=== PATIENT | male | born 1955 | race Caucasian/White ===

== ENCOUNTER 2021-02-22 10:02 | Day surgery (SDC) | payer MEDICARE, BC ==
[2021-02-21 16:30] LABS: ALBUMIN 3.9 G/DL (3.4-5.0); ANION GAP 11 (8-16); BLOOD UREA NITROGEN 16 MG/DL (7-18); BUN/CREATININE RATIO 20.8 (5.4-32.0); CHLORIDE 107 MMOL/L (99-107); CREATININE 0.77 MG/DL (0.60-1.10); GLUCOSE 95 MG/DL (70-104); POTASSIUM 3.8 MMOL/L (3.5-5.1); SODIUM 146 MMOL/L (135-145); eGFR > 90 ML/MIN
[2021-02-21 16:31] LABS: PARTIAL THROMBOPLASTIN TIME 27 SECONDS (22-32)
[2021-02-21 16:33] LABS: BASOPHILS % (AUTO) 0.5 % (0-1); EOSINOPHILS # (AUTO) 0.2 X10'3 (0-0.9); HEMATOCRIT 45.6 % (42.0-52.0); HEMOGLOBIN 15.6 g/dl (14.0-17.9); LYMPHOCYTES # (AUTO) 1.5 X10'3 (1.1-4.8); LYMPHOCYTES % (AUTO) 25.3 % (21-51); MEAN CORPUSCULAR HEMOGLOBIN 32.5 PG (27.0-31.0); MEAN CORPUSCULAR HGB CONC 34.1 g/dL (33.0-36.5); MEAN CORPUSCULAR VOLUME 95.3 FL (78-98); MEAN PLATELET VOLUME 10.1 FL (7.4-10.4); MONOCYTES # (AUTO) 0.6 X10'3 (0-0.9); MONOCYTES % (AUTO) 9.4 % (2-12); NEUTROPHILS # (AUTO) 3.7 X10'3 (1.8-7.7); NEUTROPHILS % (AUTO) 60.8 % (42-75); PLATELET COUNT 192 X10'3 (140-440); RED BLOOD COUNT 4.79 X10'6 (4.70-6.10); RED CELL DISTRIBUTION WIDTH 13.2 % (11.5-14.5); WHITE BLOOD COUNT 6.1 X10'3 (4.5-11.0)
[2021-02-22] VITALS (12 sets, daily range): BP systolic 123–176; BP diastolic 67–105
[~2021-02-22] VITALS: Ht 182.9 cm; Wt 69.1 kg
[2021-02-22] MEDS ORDERED: diphenhydrAMINE 25mg capsule PO PRN (10:25)
[2021-02-22] MEDS ORDERED: acetylcysteine 200 MG/ml 4ml vial PO PRN (10:25)
[2021-02-22] MEDS ORDERED: LORazepam 0.5 MG tablet PO PRN (10:25)
[2021-02-22] MEDS ORDERED: normal saline 1,000 ML IV SCH (10:25)
[2021-02-22] MEDS ORDERED: LIDOcaine/PRILOcaine 5gm cream TP ONE (10:25)
[2021-02-22] MEDS ORDERED: AMLO5TAB16 PO (10:29)
[2021-02-22] MEDS ORDERED: ATOR20TA66 PO (10:29)
[2021-02-22] MEDS ORDERED: BRIM5DRO16 (10:29)
[2021-02-22] MEDS ORDERED: TIMO5DRO4 (10:29)
[2021-02-22] MEDS ORDERED: LATA2.5D14 (10:29)
[2021-02-22] MEDS ORDERED: METO-395 PO (10:29)
[2021-02-22] MEDS ORDERED: [UNRECOGNIZED DRUG - CODE] PO (10:29)
[2021-02-22] MEDS ORDERED: OMEP40CA21 PO (10:29)
[2021-02-22] MEDS ORDERED: verapamil 2.5 mg/ml inj IV ONE (12:28)
[2021-02-22] MEDS ORDERED: midazolam 1 mg/ML 2ml injection ONE ×2 (12:28→14:32)
[2021-02-22] MEDS ORDERED: heparin 1,000unit/ml 10ml vial 10 ML ONE (12:29)
[2021-02-22] MEDS ORDERED: iohexol 350MG/ML 100ml bottle IV ONE ×2 (12:29→14:28)
[2021-02-22] MEDS ORDERED: iohexol 350 MG/ML 50ML vial IV ONE ×2 (12:29→15:12)
[2021-02-22] MEDS ORDERED: LIDOcaine 1% (10mg/ml)w/preservative injection 20ml MDV ONE (12:29)
[2021-02-22] MEDS ORDERED: fentaNYL/PF 50MCG/1 ML 2ML syringe ONE (12:29)
[2021-02-22] MEDS ORDERED: nitroGLYCERIN-Tridil 50MG/D5W 250 ML IV ONE (13:24)
[2021-02-22 14:10] LABS: ISTAT HGB ART 14.3 g/dl (14.0-18.0); ISTAT Hct ART 42 %PCV (42-52); ISTAT O2 SATURATION ARTERIAL 88 % (95-98); ISTAT SOURCE ART
[2021-02-22] MEDS ORDERED: heparin 25,000 UNIT/250ml bag 250 ML IV ONE (14:26)
[2021-02-22 14:29] LABS: ISTAT Hct MIX 41 %PCV (42-52); ISTAT O2 SATURATION MIX VENOUS 65 % (60-80); ISTAT SOURCE VEN
[2021-02-22] MEDS ORDERED: diphenhydrAMINE 50 mg/ml inj ONE (15:00)
[2021-02-22] MEDS ORDERED: meperidine/PF 50mg/ml syringe IV PRN (15:10)
[2021-02-22] MEDS ORDERED: clopidogrel 300mg tablet ONE (15:21)
== END 2021-02-22 20:30 | disposition home or self-care (01) ==
LOC: SSTAY O 10:02
PROVIDERS: ATTEND Internal Medicine Cardiovascular Disease
DX: R94.39 Abnormal result of other cardiovascular function study (principal); I25.10 Atherosclerotic heart disease of native coronary artery without angina pectoris; I10 Essential (primary) hypertension; E78.5 Hyperlipidemia, unspecified; J44.9 Chronic obstructive pulmonary disease, unspecified; H40.9 Unspecified glaucoma; F17.211 Nicotine dependence, cigarettes, in remission; Z79.899 Other long term (current) drug therapy; Z79.01 Long term (current) use of anticoagulants; Z83.3 Family history of diabetes mellitus
CPT/HCPCS: 36415; 76937; 80048; 82803; 85014; 85025; 85347; 85610; 85730; 93005; 93460; 99152; 99153; C1725; C1751; C1769; C1874; C1894; C9600; J1200; J1644; J2001; J2250; J3010; J7030; Q0163; Q9967; A4620; A5120; A6258; J3490

== ENCOUNTER 2022-08-01 06:59 | Emergency (ER) | payer MEDICARE, OTHER ==
[~2022-08-01] VITALS: Ht 182.9 cm; Wt 75.0 kg
[~2022-08-01 06:59] MED LIST: AMLO5TAB16 PO; LATA2.5D14; METO-395 PO; OMEP40CA21 PO; TIMO5DRO15
[2022-08-01] MEDS ORDERED: morphine 2 MG/ML inj. syringe IV ONE (07:50)
[2022-08-01] MEDS ORDERED: normal saline 1000ml 1,000 ML IV ONE (07:50)
[2022-08-01] MEDS ORDERED: ondansetron/PF 4mg/2ml inj IV ONE (07:50)
[2022-08-01] MEDS ORDERED: FLO0.4C PO (08:46)
[2022-08-01 09:16] LABS: ALANINE AMINOTRANSFERASE 26 U/L (12-78); ALBUMIN 4.5 G/DL (3.4-5.0); ALBUMIN/GLOBULIN RATIO 1.3 (1.1-1.5); ALKALINE PHOSPHATASE 81 IU/L (46-116); ANION GAP 11 (8-16); ASPARTATE AMINO TRANSFERASE 22 U/L (10-37); BASOPHILS % (AUTO) 0.2 % (0-1); BILIRUBIN,TOTAL 0.7 MG/DL (0.1-1.0); BLOOD UREA NITROGEN 18 MG/DL (7-18); BUN/CREATININE RATIO 17.3 (10.0-20.0); CALCIUM 10.1 MG/DL (8.5-10.1); CHLORIDE 102 MMOL/L (99-107); CREATININE 1.04 MG/DL (0.60-1.10); EOSINOPHILS # (AUTO) 0.1 X10'3 (0-0.9); GLUCOSE 117 MG/DL (70-104); HEMATOCRIT 48.2 % (42.0-52.0); HEMOGLOBIN 16.2 g/dl (14.0-17.9); LYMPHOCYTES # (AUTO) 0.6 X10'3 (1.1-4.8); LYMPHOCYTES % (AUTO) 5.1 % (21-51); MEAN CORPUSCULAR HEMOGLOBIN 32.6 PG (27.0-31.0); MEAN CORPUSCULAR HGB CONC 33.5 g/dL (33.0-36.5); MEAN CORPUSCULAR VOLUME 97.1 FL (78-98); MEAN PLATELET VOLUME 10.1 FL (7.4-10.4); MONOCYTES # (AUTO) 0.8 X10'3 (0-0.9); MONOCYTES % (AUTO) 6.6 % (2-12); NEUTROPHILS # (AUTO) 10.9 X10'3 (1.8-7.7); NEUTROPHILS % (AUTO) 87.1 % (42-75); PLATELET COUNT 215 X10'3 (140-440); POTASSIUM 3.9 MMOL/L (3.5-5.1); RED BLOOD COUNT 4.97 X10'6 (4.70-6.10); RED CELL DISTRIBUTION WIDTH 13.2 % (11.5-14.5); SODIUM 139 MMOL/L (135-145); TOTAL CARBON DIOXIDE 26.4 MMOL/L (24-32); WHITE BLOOD COUNT 12.5 X10'3 (4.5-11.0); eGFR 71 ML/MIN
[2022-08-01 09:19] LABS: LIPASE 91 U/L (73-393)
[2022-08-01] MEDS ORDERED: SULF1TAB49 PO (09:27)
[2022-08-01 09:42] LABS: CLARITY,URINE CLOUDY (Clear); COLOR,URINE YELLOW (Yellow); GLUCOSE, URINE NEGATIVE (Neg); KETONES,URINE TRACE mg/dl (Neg); LEUKOCYTE ESTERASE ,URINE SMALL (Neg); NITRITES, URINE NEGATIVE (Neg); OCCULT BLOOD,URINE LARGE (Neg); PH,URINE 7.5 (4.8-8.0); PROTEIN,URINE NEGATIVE (Neg); UROBILINOGEN,URINE 0.2 E.U/dL (0.2-1.0)
[2022-08-01 09:49] LABS: UA COLLECTION TYPE CLN CATCH MIDSTREAM
[2022-08-01 09:51] LABS: BACTERIA,URINE 1+ /HPF (Neg); SQUAMOUS EPITHELIAL CELL,UR NONE SEEN /LPF (FEW)
[2022-08-01 09:52] LABS: AMORPHOUS PHOSPHATES 3+
[2022-08-01 09:56] VITALS: BP 130/64
== END 2022-08-01 09:59 | disposition home or self-care (01) ==
LOC: ER 07:00
DX: N13.2 Hydronephrosis with renal and ureteral calculous obstruction (principal); R07.9 Chest pain, unspecified; F17.200 Nicotine dependence, unspecified, uncomplicated; I51.9 Heart disease, unspecified; Z79.899 Other long term (current) drug therapy
CPT/HCPCS: 36415; 71045; 74176; 80053; 81001; 83605; 83690; 84484; 85025; 87088; 93005; 96361; 96374; 96375; 99285; J2270; J2405; J7030; 87077; 87186

== ENCOUNTER 2023-01-22 10:57 | Day surgery (SDC) | payer MEDICARE, OTHER ==
[2023-01-15 15:31] LABS: BASOPHILS % (AUTO) 0.3 % (0-1); EOSINOPHILS # (AUTO) 0.5 X10'3 (0-0.9); EOSINOPHILS % (AUTO) 7.4 % (0-6); LYMPHOCYTES # (AUTO) 1.3 X10'3 (1.1-4.8); LYMPHOCYTES % (AUTO) 20.5 % (21-51); MEAN CORPUSCULAR HEMOGLOBIN 32.1 PG (27.0-31.0); MEAN CORPUSCULAR HGB CONC 33.7 g/dL (33.0-36.5); MEAN CORPUSCULAR VOLUME 95.3 FL (78-98); MEAN PLATELET VOLUME 9.7 FL (7.4-10.4); MONOCYTES # (AUTO) 0.4 X10'3 (0-0.9); NEUTROPHILS # (AUTO) 4.2 X10'3 (1.8-7.7); NEUTROPHILS % (AUTO) 65.8 % (42-75); PRE OP HEMATOCRIT 46.6 % (42.0-52.0); PRE OP HEMOGLOBIN 15.7 g/dL (14.0-17.9); PRE OP PLATELET COUNT 181 X10'3 (140-440); PRE OP WHITE BLOOD COUNT 6.4 10'3 (4.8-10.8); RED BLOOD COUNT 4.89 X10'6 (4.70-6.10); RED CELL DISTRIBUTION WIDTH 14.1 % (11.5-14.5)
[2023-01-15 15:46] LABS: ALBUMIN 3.8 G/DL (3.4-5.0); ALBUMIN/GLOBULIN RATIO 1.2 (1.1-1.5); ALKALINE PHOSPHATASE 72 IU/L (46-116); BLOOD UREA NITROGEN 26 MG/DL (7-18); BUN/CREATININE RATIO 25.2 (10.0-20.0); CALCIUM 9.7 MG/DL (8.5-10.1); CHLORIDE 105 MMOL/L (99-107); CREATININE 1.03 MG/DL (0.60-1.10); PRE OP ALT 12 U/L (30-65); PRE OP ANION GAP 4 (8-16); PRE OP AST 12 U/L (10-37); PRE OP BILIRUB, TOTAL 0.2 MG/DL (0.0-1.0); PRE OP GLUCOSE 100 MG/DL (70-104); PRE OP POTASSIUM 3.9 MMOL/L (3.4-5.1); PRE OP SODIUM 140 MMOL/L (135-145); TOTAL PROTEIN 6.9 G/DL (6.4-8.2); eGFR 72 ML/MIN
[2023-01-22] VITALS (18 sets, daily range): BP systolic 88–167; BP diastolic 62–87; PULSE 59–104; RESP 9–16; TEMP 97.6; O2SAT 91–97
[~2023-01-22] VITALS: Ht 182.9 cm; Wt 65.2 kg
[~2023-01-22 10:57] MED LIST changes: +ATOR20TA66 PO; +CLOP75TA34 PO; +DOCUMENT DATE & TIME OF BETA-BLOCKER PO ONE; +FLO0.4C PO; -LATA2.5D14; -OMEP40CA21 PO; -TIMO5DRO15; +cefazolin 2gm/D5W 100mL 100 ML IV ONE; +famotidine 20mg tablet PO ONE; +ringers solution, lacted 1,000 ML IV SCH
[2023-01-22] MEDS ORDERED: LIDOcaine 1% (10mg/ml)w/preservative inj. 20ml MDV ONE (12:37)
[2023-01-22] MEDS ORDERED: BUPIVAcaine/PF 2.5 mg/ml (0.25%) 30ml vial ONE (12:37)
[2023-01-22] MEDS ORDERED: sevoflurane 250ml liquid IH ONE (12:55)
[2023-01-22] MEDS ORDERED: fentaNYL/PF 50MCG/1 ML 2ML syringe ONE (13:02)
[2023-01-22] MEDS ORDERED: ondansetron/PF 4mg/2ml inj IV PRN (13:15)
[2023-01-22] MEDS ORDERED: ringers solution, lacted 1,000 ML IV SCH (13:15)
[2023-01-22] MEDS ORDERED: morphine 4 MG/ML inj SYRINge IV PRN (13:15)
[2023-01-22] MEDS ORDERED: meperidine/PF 25mg/ml syringe IV PRN ×2 (13:15)
[2023-01-22] MEDS ORDERED: proCHLORperazine 10 MG/2 ml inj IV PRN (13:15)
[2023-01-22] MEDS ORDERED: morphine 2 MG/ML inj. syringe IV PRN (13:15)
[2023-01-22] MEDS ORDERED: hydrALAZINE 20mg/ml inj. IV ONE ×2 (13:32→13:46)
[2023-01-22] MEDS ORDERED: dexamethasone sod phosphate 4mg/ml inj. ONE (13:46)
[2023-01-22] MEDS ORDERED: ePHEDrine 50MG/ML INJ. ONE (13:46)
[2023-01-22] MEDS ORDERED: LIDOcaine 2% (20mg/ml) 5ml vial ONE (13:46)
[2023-01-22] MEDS ORDERED: rocuronium 10mg/ml inj IV ONE (13:46)
[2023-01-22] MEDS ORDERED: ondansetron/PF 4mg/2ml inj ONE (13:46)
[2023-01-22] MEDS ORDERED: propofol inj 20 ML IV ONE (13:46)
[2023-01-22] MEDS ORDERED: acetaminophen 1,000mg/100ml IV 100 ML IV ONE (13:51)
[2023-01-22] MEDS ORDERED: glycopyrrolate 0.2mg/ml inj ONE (14:15)
[2023-01-22] MEDS ORDERED: neostigmine methylsulfate 1 MG/ML 10ml vial ONE (14:15)
--- NOTE | 2023-01-22 14:29 | NUR ---
Received from OR via [facility], accompanied by Anesthesiologist and report given by JAY Anesthesiologist. PATIENT WAKING UP, SEVERE ABDOMEN PAIN-WILL MEDICATE, V/S WNL, PIV 20G RIGHT FOREARM, BANDAID LAPS SITES CLOSED C/D/I TO ABDOMEN. Addendum: 01/22/23 at 1456 by Chance Hall RN Amended: Links added.
[2023-01-22] MEDS: meperidine/PF 25mg/ml syringe IV PRN ×2 (14:34→15:13)
[2023-01-22] MEDS ORDERED: HYDROcodone/acetaminophen 5mg/325mg tablet PO PRN (15:05)
--- NOTE | 2023-01-22 16:20 | NUR ---
PERFORMED URINE BLADDER SCANNER AND 275 CC NOTED. PATIENT TOLERATED IT WELL. Addendum: 01/22/23 at 1633 by Chance Hall RN Amended: Links added.
[2023-01-22] MEDS ORDERED: LidoCAINE 2% Topical Jelly 11mL syringe TOP ONE (17:05)
--- NOTE | 2023-01-22 17:20 | NUR ---
INSERTED RAIN CATHETER AND 325 CC OF CLEAR YELLOW URINE. PATIENT TOLERATED PROCEDURE WELL. NO S/S OF DISTRESS AT THIS TIME. WILL KEEP MONITORING.
--- NOTE | 2023-01-22 17:49 | NUR ---
RAIN CATHETER PLACED PER PROTOCOL WITH NO COMPLICATIONS DUE TO PATIENT BEING UNABLE TO VOID AND OVER 275 CC IN BLADDER SCAN. GOOD OUTPUT OF URINE FROM F/C WITH CLEAR YELLOW URINE. I HAVE DEMONSTRATED F/C CARE AND PATIENT HAS VERBALIZED UNDERSTANDING ON HOME CARE. EDUCATION PACKET GIVEN TO PATIENT WELL FOR F/C MANAGEMENT FOR HOME. PATIENT AGREES HE WILL CALL DR TORRES OFFICE IN AM FOR F/C D/C APPT IN OFFICE. ALL DISCHARGE CRITERIA HAS BEEN MET. VSS, PAIN AT A TOLERABLE LEVEL, ABLE TO SAFELY AMBULATE AND TRANSFER SELF. IV TAKEN OUT WITHOUT ANY COMPLICATIONS. ALL DISCHARGE INSTRUCTIONS COVERED WITH PATIENT AND ALL QUESTIONS ANSWERED. PATIENT TAKEN OUT VIA WHEELCHAIR WITH ALL BELONGINGS TO PERSONAL VEHICLE WHERE FAMILY DROVE PATIENT HOME. Addendum: 01/22/23 at 1812 by Chance Hall RN Amended: Links added.
== END 2023-01-22 17:49 | disposition home or self-care (01) ==
LOC: PAS 10:57
PROVIDERS: ATTEND Surgery
DX: K40.20 Bilateral inguinal hernia, without obstruction or gangrene, not specified as recurrent (principal); Z79.899 Other long term (current) drug therapy; Z98.890 Other specified postprocedural states; Z87.891 Personal history of nicotine dependence; Z87.442 Personal history of urinary calculi
CPT/HCPCS: 36415; 49650; 80053; 82948; 85025; C1781; J0131; J0360; J0690; J1100; J2175; J2270; J2405; J2704; J2710; J3010; J3490; J7030; J7120; Z7506; Z7508; Z7512; A4215; A4618

== ENCOUNTER 2023-02-19 22:35 | Inpatient (IN) | payer MEDICARE, OTHER ==
[~2023-02-19] VITALS: Ht 182.9 cm; Wt 65.0 kg
[~2023-02-19 22:35] MED LIST changes: -DOCUMENT DATE & TIME OF BETA-BLOCKER PO ONE; -cefazolin 2gm/D5W 100mL 100 ML IV ONE; -famotidine 20mg tablet PO ONE; -ringers solution, lacted 1,000 ML IV SCH
[2023-02-19 23:28] LABS: COLOR,URINE RED (Yellow); UA COLLECTION TYPE CLN CATCH MIDSTREAM
--- NOTE | 2023-02-19 23:33 | NUR ---
LAB STATED CANT RUN PARTIAL URINE DUE TO TOO MUCH BLOOD IN SAMPLE
[2023-02-19 23:37] LABS: BACTERIA,URINE 1+ /HPF (Neg); MUCUS STRANDS NONE SEEN /LPF (Neg); RBC,URINE TNTC /HPF (0-2); SQUAMOUS EPITHELIAL CELL,UR NONE SEEN /LPF (FEW); WBC,URINE NONE SEEN /HPF (0-4)
[2023-02-20] MEDS ORDERED: iohexol 300mg/ml 100ml inj. ONE (03:17)
[2023-02-20 03:25] LABS: BASOPHILS % (AUTO) 0.2 % (0-1); EOSINOPHILS # (AUTO) 0.1 X10'3 (0-0.9); EOSINOPHILS % (AUTO) 0.7 % (0-6); HEMATOCRIT 41.8 % (42.0-52.0); HEMOGLOBIN 14.3 g/dl (14.0-17.9); LYMPHOCYTES # (AUTO) 0.7 X10'3 (1.1-4.8); LYMPHOCYTES % (AUTO) 6.9 % (21-51); MEAN CORPUSCULAR HEMOGLOBIN 32.9 PG (27.0-31.0); MEAN CORPUSCULAR HGB CONC 34.3 g/dL (33.0-36.5); MEAN PLATELET VOLUME 9.8 FL (7.4-10.4); MONOCYTES # (AUTO) 0.6 X10'3 (0-0.9); MONOCYTES % (AUTO) 5.8 % (2-12); NEUTROPHILS # (AUTO) 8.3 X10'3 (1.8-7.7); NEUTROPHILS % (AUTO) 86.4 % (42-75); PLATELET COUNT 184 X10'3 (140-440); RED BLOOD COUNT 4.35 X10'6 (4.70-6.10); RED CELL DISTRIBUTION WIDTH 13.8 % (11.5-14.5); WHITE BLOOD COUNT 9.6 X10'3 (4.5-11.0)
[2023-02-20 03:28] LABS: APTT 24 SECONDS (22-32); PROTHROMBIN TIME 10.7 SECONDS (9.0-12.0)
[2023-02-20 03:32] LABS: ALANINE AMINOTRANSFERASE 12 U/L (12-78); ALBUMIN 3.8 G/DL (3.4-5.0); ALBUMIN/GLOBULIN RATIO 1.5 (1.1-1.5); ALKALINE PHOSPHATASE 67 IU/L (46-116); ANION GAP 10 (8-16); ASPARTATE AMINO TRANSFERASE 17 U/L (10-37); BILIRUBIN,TOTAL 0.7 MG/DL (0.1-1.0); BLOOD UREA NITROGEN 18 MG/DL (7-18); BUN/CREATININE RATIO 19.8 (10.0-20.0); CALCIUM 9.2 MG/DL (8.5-10.1); CHLORIDE 100 MMOL/L (99-107); CREATININE 0.91 MG/DL (0.60-1.10); GLUCOSE 139 MG/DL (70-104); POTASSIUM 4.4 MMOL/L (3.5-5.1); SODIUM 136 MMOL/L (135-145); TOTAL CARBON DIOXIDE 26.1 MMOL/L (24-32); TOTAL PROTEIN 6.3 G/DL (6.4-8.2); eCRCL 71 ML/MIN; eGFR 83 ML/MIN
[2023-02-20 04:17] LABS: COLOR,URINE RED (Yellow); UA COLLECTION TYPE VOIDED
[2023-02-20 04:29] LABS: BACTERIA,URINE 2+ /HPF (Neg); MUCUS STRANDS NONE SEEN /LPF (Neg); RBC,URINE TNTC /HPF (0-2); SQUAMOUS EPITHELIAL CELL,UR NONE SEEN /LPF (FEW); WBC,URINE 0-4 /HPF (0-4)
[2023-02-20] MEDS ORDERED: diphenhydrAMINE 25mg capsule PO PRN (04:50)
[2023-02-20] MEDS ORDERED: morphine 2 MG/ML inj. syringe IV PRN (04:50)
[2023-02-20] MEDS ORDERED: mag hydrox/Alum hydrox/simeth 30ml oral suspension PO PRN (04:50)
[2023-02-20] MEDS ORDERED: HYDROcodone/acetaminophen 10/325mg tab PO PRN (04:50)
[2023-02-20] MEDS ORDERED: magnesium hydroxide 30ml (MOM) UD suspension PO PRN (04:50)
[2023-02-20] MEDS ORDERED: HYDROcodone/acetaminophen 5mg/325mg tablet PO PRN (04:50)
[2023-02-20] MEDS ORDERED: diphenhydrAMINE 50 mg/ml inj IV PRN (04:50)
[2023-02-20] MEDS ORDERED: bisacodyl 10mg suppository rectal RC PRN (04:50)
[2023-02-20] MEDS ORDERED: acetaminophen 650mg rectal suppository RC PRN (04:50)
[2023-02-20] MEDS ORDERED: HYDROmorphone inj. 0.5 MG/0.5 ML DISP.SYRIN IV PRN (04:50)
[2023-02-20] MEDS ORDERED: ondansetron 4mg rapidly disintigrating tab PO PRN (04:50)
[2023-02-20] MEDS ORDERED: acetaminophen 325mg tablet PO PRN ×2 (04:50)
[2023-02-20] MEDS ORDERED: tranexamic acid inj. 1,000 MG in normal saline 100ml IV soln 90 ML IV ONE (04:55)
[2023-02-20] MEDS ORDERED: KCentra-PCC 500 unit/20mL vial 0 ML IV ONE (04:55)
[2023-02-20 05:15] LABS: HEMOGLOBIN A1C 5.1 % (4.5-6.2)
[2023-02-20 05:21] LABS: MAGNESIUM 1.9 MG/DL (1.5-2.4); PHOSPHORUS 3.3 MG/DL (2.3-4.5); PRO BRAIN NATRIURETIC PEPTIDE 84 PG/ML (0-125)
[2023-02-20] MEDS ORDERED: LidoCAINE 2% Topical Jelly 11mL syringe TOP ONE (05:30)
[2023-02-20] MEDS: ondansetron/PF 4mg/2ml inj IV PRN (05:36)
[2023-02-20] MEDS: morphine 2 MG/ML inj. syringe IV PRN ×2 (05:37→08:11)
[2023-02-20] MEDS: normal saline 1000ml 1,000 ML IV SCH ×2 (05:57→15:27)
[2023-02-20] MEDS: docusate sod 100mg capsule PO SCH ×2 (08:00→20:00)
[2023-02-20] MEDS: pantoprazole 40 MG vial IV SCH ×2 (09:16→20:41)
[2023-02-20] MEDS: CefTRIAXone/D5W-Rocephin 1gm 50 ML IV SCH (09:18)
--- NOTE | 2023-02-20 09:36 | NUR ---
Spoke with Md Mathur regarding paln for patient's procedure today. stating to keep him NPO at this time.
--- NOTE | 2023-02-20 12:22 | NUR ---
Urology examining patient at bedside and assessing catheter.
--- NOTE | 2023-02-20 18:06 | NUR ---
DR WRIGHT PAGED FOR ADMISSION CHANGE TO ORTHO. DR WRIGHT AGREED AND NURSING TECHNICAL INSTRUCTOR COURSE DEVELOPER NOTIFIED
[2023-02-20] MEDS ORDERED: temazepam 15mg capsule PO PRN (21:00)
--- NOTE | 2023-02-21 00:30 | NUR ---
Pt arrived from ER via hospital bed to room 4024b Alert and oriented x4. Oriented to call light and bed controls and plan of care.
[2023-02-21] MEDS: morphine 2 MG/ML inj. syringe IV PRN (00:33)
[2023-02-21] MEDS: ondansetron/PF 4mg/2ml inj IV PRN (00:33)
[2023-02-21 00:40] VITALS: BP 132/72; PULSE 86; RESP 16; TEMP 98; O2SAT 94
[2023-02-21] MEDS: normal saline 1000ml 1,000 ML IV SCH ×2 (00:50→10:50)
[2023-02-21 06:00] VITALS: BP 125/79; PULSE 91; RESP 14; TEMP 97.8; O2SAT 93
--- NOTE | 2023-02-21 06:56 | NUR ---
Report to Meli LAZO.
[2023-02-21] MEDS: pantoprazole 40 MG vial IV SCH (08:00)
[2023-02-21] MEDS: docusate sod 100mg capsule PO SCH (08:00)
[2023-02-21] MEDS: CefTRIAXone/D5W-Rocephin 1gm 50 ML IV SCH (08:06)
--- NOTE | 2023-02-21 08:48 | NUR ---
RAIN CATHETER D/C AT 0830 PER MD HARSH CAMPBELL
[2023-02-21 09:41] LABS: ALANINE AMINOTRANSFERASE 12 U/L (12-78); ALBUMIN 3.1 G/DL (3.4-5.0); ALBUMIN/GLOBULIN RATIO 1.3 (1.1-1.5); ALKALINE PHOSPHATASE 52 IU/L (46-116); ANION GAP 8 (8-16); ASPARTATE AMINO TRANSFERASE 26 U/L (10-37); BILIRUBIN,TOTAL 0.5 MG/DL (0.1-1.0); BLOOD UREA NITROGEN 7 MG/DL (7-18); BUN/CREATININE RATIO 10.3 (10.0-20.0); CALCIUM 8.4 MG/DL (8.5-10.1); CHLORIDE 106 MMOL/L (99-107); CHOL/HDL RATIO 3.7 (0.00-4.99); CHOLESTEROL 150 MG/DL (0-200); CREATININE 0.68 MG/DL (0.60-1.10); GLUCOSE 77 MG/DL (70-104); HDL CHOLESTEROL 41 MG/DL (35-60); LDL CHOLESTEROL 85 MG/DL (50-100); POTASSIUM 3.9 MMOL/L (3.5-5.1); SODIUM 140 MMOL/L (135-145); TOTAL CARBON DIOXIDE 26.2 MMOL/L (24-32); TOTAL PROTEIN 5.5 G/DL (6.4-8.2); TRIGLYCERIDES 91 MG/DL (20-135); eCRCL 94 ML/MIN; eGFR > 90 ML/MIN
[2023-02-21 09:44] LABS: BASOPHILS % (AUTO) 0.4 % (0-1); EOSINOPHILS # (AUTO) 0.1 X10'3 (0-0.9); EOSINOPHILS % (AUTO) 2.3 % (0-6); HEMATOCRIT 35.9 % (42.0-52.0); HEMOGLOBIN 12.2 g/dl (14.0-17.9); LYMPHOCYTES # (AUTO) 0.6 X10'3 (1.1-4.8); LYMPHOCYTES % (AUTO) 12.3 % (21-51); MEAN CORPUSCULAR HEMOGLOBIN 33.3 PG (27.0-31.0); MEAN CORPUSCULAR HGB CONC 33.9 g/dL (33.0-36.5); MEAN CORPUSCULAR VOLUME 98.3 FL (78-98); MEAN PLATELET VOLUME 10.4 FL (7.4-10.4); MONOCYTES # (AUTO) 0.6 X10'3 (0-0.9); MONOCYTES % (AUTO) 11.1 % (2-12); NEUTROPHILS # (AUTO) 3.8 X10'3 (1.8-7.7); NEUTROPHILS % (AUTO) 73.9 % (42-75); PLATELET COUNT 133 X10'3 (140-440); RED BLOOD COUNT 3.65 X10'6 (4.70-6.10); RED CELL DISTRIBUTION WIDTH 13.9 % (11.5-14.5); WHITE BLOOD COUNT 5.1 X10'3 (4.5-11.0)
[2023-02-21 10:00] VITALS: BP 131/74; PULSE 76; RESP 18; TEMP 97.6; O2SAT 98
[2023-02-21] MEDS ORDERED: LEVO750T68 PO (13:02)
== END 2023-02-21 14:01 | disposition home or self-care (01) | DRG 694 ==
LOC: ER 22:35 → UNDOADMIN 02-20 04:55 → ED HOLD 02-20 04:55 → ORTHO 4S 02-21 00:35
PROVIDERS: ADMIT Family Medicine; ATTEND Family Medicine
PROC: BW211ZZ Computerized Tomography (CT Scan) of Abdomen and Pelvis using Low Osmolar Contrast (ICD-10-PCS; principal; 2023-02-20)
DX: N21.0 Calculus in bladder (principal); E46 Unspecified protein-calorie malnutrition; Z68.1 Body mass index [BMI] 19.9 or less, adult; N39.0 Urinary tract infection, site not specified; I10 Essential (primary) hypertension; I25.10 Atherosclerotic heart disease of native coronary artery without angina pectoris; K76.0 Fatty (change of) liver, not elsewhere classified; N28.1 Cyst of kidney, acquired; N40.0 Benign prostatic hyperplasia without lower urinary tract symptoms; R31.0 Gross hematuria; Z79.02 Long term (current) use of antithrombotics/antiplatelets; Z87.442 Personal history of urinary calculi; Z95.5 Presence of coronary angioplasty implant and graft
CPT/HCPCS: 36415; 74178; 80053; 80061; 81001; 83036; 83735; 83880; 84100; 84145; 85025; 85610; 85730; 86885; 86900; 86901; 87040; 87081; 99285; A4314; A4338; A4340; C9113; G0378; J0696; J1170; J2270; J2405; J3490; J7030; Q9967

== ENCOUNTER 2023-09-04 07:01 | Day surgery (SDC) | payer MEDICARE, OTHER ==
[2023-09-03 10:41] LABS: BASOPHILS % (AUTO) 0.4 % (0-1); EOSINOPHILS # (AUTO) 0.4 X10'3 (0-0.9); EOSINOPHILS % (AUTO) 4.8 % (0-6); HEMATOCRIT 47.2 % (42.0-52.0); HEMOGLOBIN 16.2 g/dl (14.0-17.9); LYMPHOCYTES # (AUTO) 0.7 X10'3 (1.1-4.8); LYMPHOCYTES % (AUTO) 8.8 % (21-51); MEAN CORPUSCULAR HEMOGLOBIN 31.9 PG (27.0-31.0); MEAN CORPUSCULAR HGB CONC 34.2 g/dL (33.0-36.5); MEAN CORPUSCULAR VOLUME 93.2 FL (78-98); MEAN PLATELET VOLUME 9.6 FL (7.4-10.4); MONOCYTES # (AUTO) 0.8 X10'3 (0-0.9); MONOCYTES % (AUTO) 9.5 % (2-12); NEUTROPHILS % (AUTO) 76.5 % (42-75); PLATELET COUNT 194 X10'3 (140-440); RED BLOOD COUNT 5.06 X10'6 (4.70-6.10); RED CELL DISTRIBUTION WIDTH 13.6 % (11.5-14.5); WHITE BLOOD COUNT 7.9 X10'3 (4.5-11.0)
[2023-09-03 10:53] LABS: ALBUMIN 2.8 G/DL (3.4-5.0); ANION GAP 11 (8-16); APTT 26 SECONDS (22-32); BLOOD UREA NITROGEN 20 MG/DL (7-18); BUN/CREATININE RATIO 18.2 (10.0-20.0); CALCIUM 9.2 MG/DL (8.5-10.1); CHLORIDE 99 MMOL/L (99-107); GLUCOSE 116 MG/DL (70-104); POTASSIUM 3.6 MMOL/L (3.5-5.1); SODIUM 133 MMOL/L (135-145); TOTAL CARBON DIOXIDE 23.2 MMOL/L (24-32); eGFR 66 ML/MIN
[2023-09-04] VITALS (14 sets, daily range): BP systolic 123–165; BP diastolic 74–104; PULSE 59–83; RESP 10–12; TEMP 98.1; O2SAT 93–98
[~2023-09-04] VITALS: Ht 182.9 cm; Wt 66.0 kg
[~2023-09-04 07:01] MED LIST changes: -AMLO5TAB16 PO; +AMLO5TAB5 PO; -ATOR20TA66 PO; +ATOR40TA14 PO; +LOSA50TA64 PO
[2023-09-04] MEDS: normal saline 1,000 ML IV SCH (07:58)
[2023-09-04] MEDS: LORazepam 0.5 MG tablet PO PRN (07:58)
[2023-09-04] MEDS ORDERED: AMLO10TA PO (07:59)
[2023-09-04] MEDS ORDERED: BRIM5DRO21 EACHEYE (07:59)
[2023-09-04] MEDS ORDERED: XAL0.005OS OP (07:59)
[2023-09-04] MEDS ORDERED: ATOR20TA PO (07:59)
[2023-09-04] MEDS: diphenhydrAMINE 25mg capsule PO PRN (08:00)
[2023-09-04] MEDS ORDERED: fentaNYL/PF 50MCG/1 ML 2ML syringe ONE (08:37)
[2023-09-04] MEDS ORDERED: verapamil 2.5 mg/ml inj IV ONE (08:37)
[2023-09-04] MEDS ORDERED: LIDOcaine 1% (10mg/ml) 2ml vial ONE (08:37)
[2023-09-04] MEDS ORDERED: midazolam 1 mg/ML 2ml injection ONE (08:37)
[2023-09-04] MEDS ORDERED: iohexol 350 MG/ML 50ML vial IV ONE ×2 (08:37→09:55)
[2023-09-04] MEDS ORDERED: heparin 1,000unit/ml 10ml vial 10 ML ONE (08:37)
[2023-09-04] MEDS ORDERED: iohexol 350MG/ML 100ml bottle IV ONE ×2 (08:37→09:28)
[2023-09-04] MEDS ORDERED: nitroGLYCERIN 500mcg/5mL D5W 5 ML IV ONE ×2 (08:39→09:42)
[2023-09-04] MEDS ORDERED: heparin 25,000 UNIT/250ml bag 250 ML IV ONE (09:34)
[2023-09-04] MEDS ORDERED: clopidogrel 300mg tablet ONE (10:23)
[2023-09-04] MEDS ORDERED: HYDROcodone/acetaminophen 5mg/325mg tablet PO PRN (11:05)
[2023-09-04] MEDS ORDERED: ondansetron/PF 4mg/2ml inj IV PRN (11:05)
[2023-09-04] MEDS: OXAZEpam 15mg capsule PO PRN (11:05)
[2023-09-04] MEDS ORDERED: proCHLORperazine 10 MG/2 ml inj IV PRN (11:05)
[2023-09-04] MEDS ORDERED: HYDROcodone/acetaminophen 10/325mg tab PO PRN (11:05)
[2023-09-05] MEDS ORDERED: clopidogrel 75mg tablet PO SCH (08:00)
== END 2023-09-04 18:50 | disposition home or self-care (01) ==
LOC: SSTAY O 07:01
PROVIDERS: ATTEND Internal Medicine Cardiovascular Disease
DX: I25.10 Atherosclerotic heart disease of native coronary artery without angina pectoris (principal); I10 Essential (primary) hypertension; E78.5 Hyperlipidemia, unspecified; J44.9 Chronic obstructive pulmonary disease, unspecified; H40.9 Unspecified glaucoma; Z79.899 Other long term (current) drug therapy; Z95.5 Presence of coronary angioplasty implant and graft; Z83.3 Family history of diabetes mellitus
CPT/HCPCS: 36415; 76937; 80048; 84132; 85025; 85347; 85610; 85730; 93005; 93458; 99152; 99153; A6258; C1874; C9600; J1644; J2250; J3010; J3490; J7030; Q0163; Q9967; A6402; C1725; C1751; C1769; C1894